=== PATIENT | male | born 1960 | race Caucasian/White ===

== ENCOUNTER 2021-03-28 09:14 | Day surgery (SDC) | payer BC ==
[2021-03-23 14:07] VITALS: BMI 33.9
[2021-03-28 09:37] LABS: Glucose,Whole Blood 200 mg/dL (75-99)
[2021-03-28] MEDS ORDERED: SODIUM CHLORIDE 0.9% 500 ML 500 ML IV ONE (09:40)
[2021-03-28 09:42] VITALS: TEMP 97.8
[2021-03-28] MEDS ORDERED: fentaNYL (PF) 50 MCG/ML 2 ML AMP ONE (09:51)
[2021-03-28] MEDS: BENZOCAINE SPRAY 1 CAN MUCOUS MEM ONE ×2 (10:02→10:04)
[2021-03-28] MEDS ORDERED: MIDAZOLAM 2 MG/2 ML VIAL IV ONE (10:03)
[2021-03-28] MEDS ORDERED: fentaNYL (PF) 50 MCG/ML 2 ML AMP IV ONE (10:03)
[2021-03-28] MEDS: MIDAZOLAM 2 MG/2 ML VIAL IV ONE ×2 (10:06→10:08)
[2021-03-28 10:32] VITALS: RESP 18
--- NOTE | 2021-03-28 11:07 | ECHOT ---
TRANSESOPHAGEAL ECHOCARDIOGRAM DATE OF SERVICE: March 28, 2021. PERFORMING PHYSICIAN: Alexys Mancini MD. PROCEDURE PERFORMED: Transesophageal echocardiogram. INDICATION: Rule out aortic valve echodensity was identified on surface echo. COMPLICATION: None. LEVEL OF SEDATION: Moderate with sedation length of 10 minutes. PROCEDURE DESCRIPTION: After obtaining informed consent, the patient was brought to the transesophageal echocardiogram suite. Pulse oximetry and heart rate monitors were attached the patient. Subsequently, the transesophageal echocardiogram probe was advanced through the bite guard to the mid esophageal where a 2D echocardiogram images as well as color Doppler images as well as pulse and continuous-wave Doppler images were obtained from various angles. Subsequently we did a contrast study. The procedure was completed without any complication. FINDINGS: The left ventricular dimension and systolic function appeared to be within normal limits. The ejection fraction appeared to be in the range of 50% to 55%. The right ventricle appeared to be of normal size and function. The left atrium and right atrium appeared to be within normal limits for dimension. The left atrial appendage appeared to be free from any thrombus. The interatrial septum appeared to be intact. The aortic valve is trileaflet valve and seems to be mildly thickened without stenosis or regurgitation. The mitral valve appeared to be normal with mild MR, which is physiologic. Normal tricuspid valve and pulmonic valve identified. CONCLUSION: 1. Normal left ventricular dimension and systolic function. 2. Normal right ventricular dimension and systolic function. 3. Normal cardiac chamber sizes. 4. Normal left atrial appendage. 5. Intact interatrial septum. 6. Aortic sclerosis without stenosis or insufficiency. 7. Normal mitral valve leaflets with mild physiologic MR. 8. Normal tricuspid valve and pulmonic valve. 9. No evidence of pericardial effusion. MMODL / IJN: [id number] /
[2021-03-28 11:59] VITALS: BP 132/76; PULSE 58
== END 2021-03-28 12:04 | disposition home or self-care (01) ==
LOC: CATHCVL 09:14
PROVIDERS: ATTEND Internal Medicine Interventional Cardiology
DX: I70.0 Atherosclerosis of aorta (principal)
CPT/HCPCS: 93312; 93320; 93325; J2250; J3010